=== PATIENT | male | born 1985 | race Caucasian/White ===

== ENCOUNTER 2021-04-05 10:54 | Emergency (ER) | payer SELFPAY ==
[~2021-04-05] VITALS: Ht 172.7 cm; Wt 86.4 kg
--- NOTE | 2021-04-05 11:45 | NUR ---
GAVE PT ICE WATER, PT AWARE UA NEEDED,
[2021-04-05 11:46] LABS: BASOPHILS # (AUTO) 0.1 X10'3 (0-0.2); BASOPHILS % (AUTO) 0.5 % (0-1); EOSINOPHILS # (AUTO) 0.1 X10'3 (0-0.9); EOSINOPHILS % (AUTO) 0.7 % (0-6); HEMATOCRIT 42.6 % (42.0-52.0); HEMOGLOBIN 14.2 g/dl (14.0-17.9); LYMPHOCYTES # (AUTO) 1.4 X10'3 (1.1-4.8); LYMPHOCYTES % (AUTO) 11.1 % (21-51); MEAN CORPUSCULAR HEMOGLOBIN 28.9 PG (27.0-31.0); MEAN CORPUSCULAR HGB CONC 33.3 g/dL (33.0-36.5); MEAN CORPUSCULAR VOLUME 86.8 FL (78-98); MEAN PLATELET VOLUME 8.6 FL (7.4-10.4); MONOCYTES # (AUTO) 0.9 X10'3 (0-0.9); NEUTROPHILS # (AUTO) 10.3 X10'3 (1.8-7.7); NEUTROPHILS % (AUTO) 80.7 % (42-75); PLATELET COUNT 256 X10'3 (140-440); RED BLOOD COUNT 4.91 X10'6 (4.70-6.10); RED CELL DISTRIBUTION WIDTH 14.3 % (11.5-14.5); WHITE BLOOD COUNT 12.7 X10'3 (4.5-11.0)
[2021-04-05 11:58] LABS: ALANINE AMINOTRANSFERASE 20 U/L (12-78); ALBUMIN 4.5 G/DL (3.4-5.0); ALBUMIN/GLOBULIN RATIO 1.5 (1.1-1.5); ALKALINE PHOSPHATASE 84 IU/L (46-116); ANION GAP 13 (8-16); ASPARTATE AMINO TRANSFERASE 13 U/L (10-37); BILIRUBIN,TOTAL 0.7 MG/DL (0.1-1.0); BLOOD UREA NITROGEN 16 MG/DL (7-18); CALCIUM 8.8 MG/DL (8.5-10.1); CHLORIDE 101 MMOL/L (99-107); GLUCOSE 145 MG/DL (70-104); POTASSIUM 3.7 MMOL/L (3.5-5.1); SODIUM 139 MMOL/L (135-145); TOTAL PROTEIN 7.5 G/DL (6.4-8.2); eGFR 84 ML/MIN
[2021-04-05 12:07] LABS: ETHANOL < 0.010 GM/DL (0.0-0.010)
[2021-04-05 12:15] LABS: ACETAMINOPHEN 68.7 UG/ML (10-30)
--- NOTE | 2021-04-05 12:29 | NUR ---
TALKED WITH CHI FROM [facility]ISON [facility], HE RECOMMENDED LABS--TYLENOL, ASA, TOX SCREEN, EKG, CHECK FOR WIDENING QRS AND TX WITH SODIUM BICARB, WATCH ANTICHOLERGENIC RXN
[2021-04-05 12:59] LABS: URINE AMPHETAMINE SCREEN NEGATIVE (Neg); URINE BARBITUATE SCREEN NEGATIVE (Neg); URINE BENZODIAZEPINES SCREEN NEGATIVE (Neg); URINE CANNABINOID SCREEN POSITIVE (Neg); URINE COCAINE SCREEN NEGATIVE (Neg); URINE METHADONE SCREEN NEGATIVE (Neg); URINE OPIATE SCREEN NEGATIVE (Neg); URINE PHENCYCLIDINE SCREEN NEGATIVE (Neg)
[2021-04-05] MEDS ORDERED: charcoal, activated 50 GM/240 ML bottle PO ONE (13:05)
--- NOTE | 2021-04-05 13:21 | NUR ---
CAUTION LUNCH TRAY GIVEN TO PATIENT
--- NOTE | 2021-04-05 13:25 | NUR ---
Arnol Ortega [employer] gave verbal order to have pt drink charcoal first and then ok to finish lunch, pt is calm and cooperative, resp even and unlabored, skin p/w/d, pt is alert and oriented x3
--- NOTE | 2021-04-05 14:02 | NUR ---
PT IS RESTING QUIETLY ON GURNEY, RESP EVEN AND UNLABORED,
[2021-04-05 14:29] LABS: ACETAMINOPHEN 26.4 UG/ML (10-30); ALBUMIN 4.6 G/DL (3.4-5.0); ANION GAP 12 (8-16); BLOOD UREA NITROGEN 13 MG/DL (7-18); BUN/CREATININE RATIO 12.1 (5.4-32.0); CALCIUM 9.2 MG/DL (8.5-10.1); CHLORIDE 101 MMOL/L (99-107); CREATININE 1.07 MG/DL (0.60-1.10); GLUCOSE 183 MG/DL (70-104); POTASSIUM 4.1 MMOL/L (3.5-5.1); SODIUM 139 MMOL/L (135-145); TOTAL CARBON DIOXIDE 25.7 MMOL/L (24-32); eGFR 78 ML/MIN
[2021-04-05 15:23] VITALS: BP 119/83
== END 2021-04-05 15:20 | disposition home or self-care (01) ==
LOC: ER 10:55
DX: T39.1X1A Poisoning by 4-Aminophenol derivatives, accidental (unintentional), initial encounter (principal); F32.9 Major depressive disorder, single episode, unspecified; Y92.89 Other specified places as the place of occurrence of the external cause
CPT/HCPCS: 36415; 80048; 80053; 80305; 80320; 80329; 85025; 93005; 99285